=== PATIENT | female | born 2000 | race Two or more races ===

== ENCOUNTER 2018-01-09 10:34 | Emergency (ER) | payer OTHER ==
[~2018-01-09] VITALS: Ht 180.3 cm; Wt 69.9 kg
[~2018-01-09 10:34] MED LIST: ATARAX,VISTARIL50 MG PO; CONCERTA27 MG PO; EPIPEN ADU0.3 MG/0.3 IM; FISH OIL; INTUNIV2 MG PO; INVEGA6 MG PO; LAMICTAL100 MG PO; MULTIVITAMIN; PEPCID20 MG PO; PREDNISONE20 MG PO; SERTRALINE; TOPAMAX; TOPAMAX50 MG PO; ZOLOFT; ZOLOFT100 MG PO; ZYPREXA; ZYPREXA5 MG PO
[2018-01-09 11:12] LABS: HEMATOCRIT 37.7 % (36.0-46.0); HEMOGLOBIN 12.3 G/DL (11.9-15.5); MCHC 32.6 G/DL (30.0-36.0); MCV 82.7 FL (83-99); PLATELET COUNT 227 K/uL (156-360); RBC DIS.WIDTH-CV 12.1 % (11.8-14.6); RBC DIS.WIDTH-SD 36.6 % (39-53); RED BLOOD COUNT 4.56 M/uL (3.80-5.20); WHITE BLOOD COUNT 7.6 K/uL (4.1-10.2)
[2018-01-09 11:23] LABS: CHLORIDE 106 mEq/L (99-109); POTASSIUM 4.5 mEq/L (3.7-5.4); SODIUM 139 mEq/L (136-147)
[2018-01-09 11:25] LABS: GLUCOSE 106 mg/dL (70-99)
[2018-01-09 11:29] LABS: CREATININE 0.9 mg/dL (0.6-1.3); GFR ESTIMATE (CALCULATED) > 59 mL/min/
[2018-01-09 11:30] LABS: UREA NITROGEN (BUN) 11 mg/dL (9-23)
[2018-01-09 11:33] LABS: TROP-I INTERPRETATION NEGATIVE; TROPONIN-I < 0.01 ng/mL (0.0-0.30)
[2018-01-09 11:37] LABS: QUANTITATIVE HCG < 4.0 MIU/ML
[2018-01-09 14:11] LABS: APPEARANCE SL.HAZY ((CLEAR)); BILIRUBIN NEGATIVE; BLOOD MODERATE; COLOR YELLOW ((YELLOW)); GLUCOSE (STRIP) NEGATIVE; KETONES NEGATIVE; LEUKOCYTES MODERATE; NITRITE NEGATIVE; PROTEIN (STRIP) 30; SPECIFIC GRAVITY 1.018 (1.000-1.030)
[2018-01-09 14:17] LABS: BACTERIA RARE /HPF; EPITHELIAL CELLS 1+ /HPF; MUCUS TRACE /LPF; RED BLOOD CELLS TNTC /HPF (0-5); UCUL ADDED? YES; WHITE BLOOD CELLS TNTC /HPF (0-5)
[2018-01-09 15:30] LABS: APPEARANCE CLEAR ((CLEAR)); BILIRUBIN NEGATIVE; BLOOD SMALL; COLOR STRAW ((YELLOW)); GLUCOSE (STRIP) NEGATIVE; KETONES NEGATIVE; LEUKOCYTES SMALL; NITRITE NEGATIVE; PROTEIN (STRIP) NEGATIVE; SPECIFIC GRAVITY 1.009 (1.000-1.030); UROBILINOGEN 0.2 MG/DL (0.2-1.0)
[2018-01-09 15:49] LABS: BACTERIA NONE SEEN /HPF; EPITHELIAL CELLS RARE /HPF; MUCUS NONE SEEN /LPF; UCUL ADDED? YES; WHITE BLOOD CELLS 15-20 /HPF (0-5)
[2018-01-09] MEDS ORDERED: MACROBID100 MG PO (16:27)
[2018-01-09 16:32] VITALS: BP 123/94
== END 2018-01-09 16:55 | disposition home or self-care (01) ==
LOC: EME 10:34
PROVIDERS: Emergency Medicine
DX: N39.0 Urinary tract infection, site not specified (principal); B96.20 Unspecified Escherichia coli [E. coli] as the cause of diseases classified elsewhere; S09.90XA Unspecified injury of head, initial encounter; Z87.442 Personal history of urinary calculi; J45.909 Unspecified asthma, uncomplicated; F32.9 Major depressive disorder, single episode, unspecified; F31.9 Bipolar disorder, unspecified; F90.9 Attention-deficit hyperactivity disorder, unspecified type; Z86.59 Personal history of other mental and behavioral disorders; Z91.013 Allergy to seafood
CPT/HCPCS: 70450; 74176; 80048; 81003; 84484; 84702; 85027; 87077; 87086; 87186; 93005; 99281; 99285; J1885; J2270; J2405; J7030

== ENCOUNTER 2018-01-11 19:46 | Emergency (ER) | payer OTHER ==
[~2018-01-11] VITALS: Ht 180.3 cm; Wt 70.7 kg
[~2018-01-11 19:46] MED LIST changes: +MACROBID100 MG PO
[2018-01-11 20:52] LABS: HEMATOCRIT 36.1 % (36.0-46.0); HEMOGLOBIN 11.9 G/DL (11.9-15.5); MCH 27.4 PG (29.0-34.0); PLATELET COUNT 225 K/uL (156-360); RBC DIS.WIDTH-CV 12.1 % (11.8-14.6); RBC DIS.WIDTH-SD 37.1 % (39-53); RED BLOOD COUNT 4.35 M/uL (3.80-5.20); WHITE BLOOD COUNT 5.9 K/uL (4.1-10.2)
[2018-01-11 21:01] LABS: CHLORIDE 108 mEq/L (99-109); POTASSIUM 3.6 mEq/L (3.7-5.4); SODIUM 140 mEq/L (136-147)
[2018-01-11 21:03] LABS: GLUCOSE 88 mg/dL (70-99); TOTAL PROTEIN 6.5 g/dL (6.4-8.3)
[2018-01-11 21:05] LABS: TOTAL BILIRUBIN 0.9 mg/dL (0.0-1.0)
[2018-01-11 21:07] LABS: ALKALINE PHOSPHATASE 79 IU/L (3-129); CREATININE 0.9 mg/dL (0.6-1.3); GFR ESTIMATE (CALCULATED) > 59 mL/min/
[2018-01-11 21:08] LABS: UREA NITROGEN (BUN) 10 mg/dL (9-23)
[2018-01-11 21:09] LABS: AST (GOT) 27 IU/L (2-34)
[2018-01-11 21:10] LABS: ALT (GPT) 13 IU/L (3-49)
[2018-01-11 21:11] LABS: D-DIMER ELISA < 150.00 ng/mLDDU (<230)
[2018-01-11 21:16] LABS: TROP-I INTERPRETATION NEGATIVE; TROPONIN-I < 0.01 ng/mL (0.0-0.30)
[2018-01-11 21:17] LABS: QUANTITATIVE HCG < 4.0 MIU/ML
[2018-01-11 22:01] LABS: APPEARANCE SL.HAZY ((CLEAR)); BILIRUBIN NEGATIVE; BLOOD MODERATE; COLOR YELLOW ((YELLOW)); GLUCOSE (STRIP) NEGATIVE; KETONES NEGATIVE; LEUKOCYTES LARGE; NITRITE NEGATIVE; PROTEIN (STRIP) 100; SPECIFIC GRAVITY 1.025 (1.000-1.030)
[2018-01-11 22:16] LABS: BACTERIA RARE /HPF; EPITHELIAL CELLS 1+ /HPF; MUCUS 1+ /LPF; RED BLOOD CELLS 15-20 /HPF (0-5); UCUL ADDED? YES; WHITE BLOOD CELLS 30-40 /HPF (0-5)
[2018-01-11 22:23] VITALS: BP 125/90
[2018-01-11 22:34] LABS: THYROTROPIN (TSH) 0.78 MIU/L (0.4-5.5)
== END 2018-01-11 22:25 | disposition home or self-care (01) ==
LOC: EME 19:46
PROVIDERS: Physician Assistant
DX: R55 Syncope and collapse (principal); R07.9 Chest pain, unspecified; N39.0 Urinary tract infection, site not specified; Z87.442 Personal history of urinary calculi; J45.909 Unspecified asthma, uncomplicated; F32.9 Major depressive disorder, single episode, unspecified; F90.9 Attention-deficit hyperactivity disorder, unspecified type
CPT/HCPCS: 71046; 80053; 81003; 84443; 84484; 84702; 85027; 85379; 87077; 87086; 87186; 93005; 99281; 99284